=== PATIENT | female | born 1955 | race Caucasian/White ===

== ENCOUNTER 2019-07-28 02:02 | Emergency (ER) | payer MEDICARE, MEDICAID ==
[~2019-07-28] VITALS: Ht 160 cm; Wt 81.8 kg
[~2019-07-28 02:02] MED LIST: AZIT250T27 PO; METH4TAB3 PO; METH500T PO
[2019-07-28] MEDS ORDERED: ipratropium/albuterol 3ml nebule NEB ONE (03:15)
[2019-07-28 04:12] VITALS: BP 164/81
== END 2019-07-28 04:24 | disposition home or self-care (01) ==
LOC: ER 02:03
DX: J06.9 Acute upper respiratory infection, unspecified (principal); M19.90 Unspecified osteoarthritis, unspecified site; G89.29 Other chronic pain; G43.909 Migraine, unspecified, not intractable, without status migrainosus; F17.210 Nicotine dependence, cigarettes, uncomplicated; Z60.2 Problems related to living alone
CPT/HCPCS: 93005; 94640; 94760; 99283; 99406

== ENCOUNTER 2019-10-25 21:01 | Emergency (ER) | payer MEDICARE, MEDICAID ==
[~2019-10-25] VITALS: Ht 162.6 cm; Wt 81.8 kg
--- NOTE | 2019-10-25 21:33 | NUR ---
FAMILY KERRIE [phone] OR ADENIKE [phone]
[2019-10-25] MEDS ORDERED: dexamethasone sod phosphate 10mg/ml inj IV STA (21:34)
[2019-10-25] MEDS ORDERED: diazepam 5mg tablet PO ONE (21:35)
[2019-10-25] MEDS ORDERED: ketorolac trometh. 30mg/ml inj. IV ONE (21:35)
[2019-10-25] MEDS ORDERED: DIAZ5TAB PO (21:37)
--- NOTE | 2019-10-25 22:29 | NUR ---
RELIEVING RN FOR BREAK, PT AMB WITH SLOW STEADY GAIT TO RESTROOM
[2019-10-25] MEDS ORDERED: cloNIDine 0.1 mg tablet PO ONE (22:45)
--- NOTE | 2019-10-25 22:47 | NUR ---
Shubham HARRISON AWARE OF HIGH BP208/104, GAVE VERBAL ORDER TO DC AFTER TAKING BP MED,
[2019-10-25 22:51] VITALS: BP 208/104
== END 2019-10-25 22:52 | disposition home or self-care (01) ==
LOC: ER 21:02
DX: M54.5 Low back pain (principal); G89.29 Other chronic pain; M62.830 Muscle spasm of back; G43.909 Migraine, unspecified, not intractable, without status migrainosus; M19.90 Unspecified osteoarthritis, unspecified site; Z60.2 Problems related to living alone; Z88.0 Allergy status to penicillin; Z79.899 Other long term (current) drug therapy; X50.1XXA Overexertion from prolonged static or awkward postures, initial encounter; Y93.89 Activity, other specified; Y92.89 Other specified places as the place of occurrence of the external cause; Y99.8 Other external cause status
CPT/HCPCS: 93005; 96374; 96375; 99284; J1100; J1885

== ENCOUNTER 2020-12-17 16:02 | Emergency (ER) | payer MEDICARE, MEDICAID ==
[~2020-12-17] VITALS: Ht 162.6 cm; Wt 81.8 kg
[~2020-12-17 16:02] MED LIST changes: +DIAZ5TAB PO
[2020-12-17] MEDS ORDERED: NAPR-56 PO (18:38)
[2020-12-17 18:53] VITALS: BP 156/75
== END 2020-12-17 18:57 | disposition home or self-care (01) ==
LOC: ER 16:02
DX: S90.122A Contusion of left lesser toe(s) without damage to nail, initial encounter (principal); M54.5 Low back pain; G43.909 Migraine, unspecified, not intractable, without status migrainosus; M19.90 Unspecified osteoarthritis, unspecified site; G89.29 Other chronic pain; Z60.2 Problems related to living alone; Z88.0 Allergy status to penicillin; Z79.899 Other long term (current) drug therapy; W22.01XA Walked into wall, initial encounter; Y93.89 Activity, other specified; Y92.89 Other specified places as the place of occurrence of the external cause; Y99.8 Other external cause status
CPT/HCPCS: 73660; 99283

== ENCOUNTER 2024-02-22 06:19 | Day surgery (SDC) | payer MEDICARE, MEDICAID ==
[2024-02-22] VITALS (11 sets, daily range): BP systolic 87–142; BP diastolic 56–76; PULSE 63–87; RESP 12–16; TEMP 97.4; O2SAT 89–100
[~2024-02-22] VITALS: Ht 162.6 cm; Wt 74.0 kg
[~2024-02-22 06:19] MED LIST changes: +ALBU8HFA INH; -AZIT250T27 PO; -DIAZ5TAB PO; +GLYC10.7 PO; -METH4TAB3 PO; -METH500T PO; +OMEP40CA21 PO; +OXYC1TAB17 PO; +PROM25TA14 PO
[2024-02-22] MEDS ORDERED: epiNEPHrine 1 mg/ml inj ONE (07:07)
[2024-02-22] MEDS ORDERED: gelatin sponge, absorbable (Gelfoam 100) sponge TP ONE (07:08)
[2024-02-22] MEDS: ringers solution, lacted 1,000 ML IV SCH (07:36)
[2024-02-22] MEDS: famotidine 20mg tablet PO ONE (07:36)
[2024-02-22] MEDS: albuterol 2.5 MG/3 ML nebule NEB ONE (07:46)
[2024-02-22] MEDS ORDERED: sevoflurane 250ml liquid IH ONE (08:07)
[2024-02-22] MEDS ORDERED: fentaNYL/PF 50MCG/1 ML 2ML syringe ONE ×2 (08:12→08:45)
[2024-02-22] MEDS ORDERED: midazolam 1 mg/ML 2ml injection ONE (08:13)
[2024-02-22] MEDS ORDERED: LIDOcaine 2% (20mg/ml) 5ml vial ONE (08:17)
[2024-02-22] MEDS ORDERED: propofol inj 20 ML IV ONE (08:17)
[2024-02-22] MEDS ORDERED: phenylephrine 10mg/ml inj. -priapism dosing ONE (08:42)
[2024-02-22] MEDS ORDERED: dexamethasone sod phosphate 4mg/ml inj. ONE (08:42)
[2024-02-22] MEDS: ofloxacin 0.3% 5ml otic drops EACH EAR ONE (08:46)
[2024-02-22] MEDS ORDERED: ondansetron/PF 4mg/2ml inj ONE (09:08)
== END 2024-02-22 10:02 | disposition home or self-care (01) ==
LOC: PAS 06:19
PROVIDERS: ATTEND Otolaryngology
DX: H74.03 Tympanosclerosis, bilateral (principal); H65.493 Other chronic nonsuppurative otitis media, bilateral; H91.8X3 Other specified hearing loss, bilateral; I25.2 Old myocardial infarction; I10 Essential (primary) hypertension; J44.9 Chronic obstructive pulmonary disease, unspecified; K21.9 Gastro-esophageal reflux disease without esophagitis; Z90.89 Acquired absence of other organs; Z98.891 History of uterine scar from previous surgery; Z98.890 Other specified postprocedural states; Z88.0 Allergy status to penicillin
CPT/HCPCS: 69436; 69450; 82948; 93005; 94640; 94760; J1100; J2250; J2371; J2405; J2704; J3010; J3490; J7120; Z7506; Z7508; Z7512; A4618; J0171; J2370